=== PATIENT | female | born 1965 | race Caucasian/White ===

== ENCOUNTER → 2017-06-28 | Day surgery (SDC) | payer OTHER ==
[~2017-06-28] VITALS: Ht 162.6 cm; Wt 81.6 kg
[~2017-06-28] MED LIST: ASPIRIN EC81 M1 PO; ATORVASTATIN CA40 M1 PO; CITALOPRAM HBR20 MG PO; GLIMEPIRIDE4 M1 PO; LEVEMIR FL100 UNIT/1 SC; LISINOPRIL20 M1 PO; METFORMIN HCL500 M4 PO; MULTI FOR HER1 EAC2 PO; OMEPRAZOLE40 M1 PO; PERCOCET 5-3251 EACH PO; VICTOZA 2-0.6 MG/0.1 SC; VITAMIN D1000 UNIT PO
--- NOTE | 2017-06-29 19:32 | Operative Report ---
Operative/Inv Procedure Report Surgery Date: 06/28/17 Name of Procedure: Laparoscopic cholecystectomy Pre-Operative Diagnosis: Symptomatic gallstones Post-Operative Diagnosis: Same Estimated Blood Loss: scant Surgeon/Rn Managed Care: Bro TAYLOR,Devante HERNANDEZ Anesthesia: general endotracheal tube Operative/Procedure Note Note: Patient was positioned supine. After successful induction of general anesthesia, the patient's abdomen was clipped, prepped and draped in the usual sterile fashion. Local anesthetic was injected at the top of the umbilicus and then a curved horizontal incision little over a centimeter was made there with a 15 blade and then deepened to the midline fascia which was incised vertically a little over a centimeter. Both sides were secured with 0 Vicryl stay sutures and then the thin peritoneal layer was entered, 10 mm Michel trocar inserted obliquely to the right, and the gas was turned on to 15 mm. After insufflation and repositioning to reverse Trendelenburg, 3 more dissecting 5 mm trochars were placed in the right subcostal area, first lateral, then mid-subcostal, then subxiphoid. The gallbladder fundus was grasped from the lateral port and retracted up over the edge of the liver and then we dissected out the area of the triangle of Calot while retracting the infundibulum caudally / laterally. First the cystic duct was identified, isolated at the neck, clipped 3 times, divided after the second clip and then in similar fashion the cystic artery was identified medially, dissected and divided. Then the gallbladder was from the liver bed using cautery then lowered into an Endobag and removed through the umbilical incision. The instruments and then the trochars were removed letting the gas escape. The fascial incision was closed with a figure 8 Vicryl then all 4 skin incisions were closed with interrupted subcuticular 4-0 Monocryl, followed by Mastisol Steri-Strips and Bandaids. Estimated blood loss was minimal, lap and sponge counts were correct, wound expectancy was clean- contaminated, IV fluids crystalloid, complications none, patient tolerated the procedure well and was returned to the recovery room in satisfactory condition.
== END ==
LOC: STS 03:09
DX: K80.10 Calculus of gallbladder with chronic cholecystitis without obstruction (principal); I10 Essential (primary) hypertension; E11.9 Type 2 diabetes mellitus without complications; Z79.84 Long term (current) use of oral hypoglycemic drugs; K21.9 Gastro-esophageal reflux disease without esophagitis; Z87.891 Personal history of nicotine dependence
CPT/HCPCS: C9399; J0690; J2250